=== PATIENT | female | born 1965 | race Caucasian/White ===

== ENCOUNTER 2018-02-20 15:50 | Emergency (ER) | payer BC ==
[2018-02-20] MEDS ORDERED: Sodium Chloride 0.9% 1,000 ML IV ONE ×2 (15:57→17:01)
[2018-02-20] MEDS ORDERED: Labetalol 20 MG/4 ML Syringe IVPUSH ONE (16:01)
--- NOTE | 2018-02-20 16:02 | EDM.PDOC ---
ED HPI GENERAL MEDICAL PROBLEM - General Chief Complaint: Respiratory Problem Stated Complaint: CHEST TIGHTNESS Time Seen by Provider: 02/20/18 15:50 Source of Information: Reports: Patient, Family History Limitations: Reports: Respiratory Distress - History of Present Illness INITIAL COMMENTS - FREE TEXT/NARRATIVE: 52 y.o.w f came to the ed with her SO due to palpitations and light headedness, Her face is tingling and feels it is exploding. Her pulse was 123 her RR was 33 on arrival to the ed. She did not drink much water in the past few days because she did not feel like it. Stormy N/V/D or other acute medical issues. When the nurse took the vitals BP was 182/120 Pulse 119 RR 20 Pulse ox 99% on RA Temp 36.8 Onset Date: 02/19/18 Onset Time: 12:00 Duration: Day(s):, Intermittent Location: Reports: Chest Quality: Reports: Ache, Same as Previous Episode Severity: Moderate Improves with: Reports: Rest Worsens with: Reports: None Context: Reports: Other Associated Symptoms: Reports: Chest Pain, Cough, Shortness of Breath - Related Data Allergies Allergy/AdvReac Type Severity Reaction Status Date / Time morphine Allergy Itching Verified 02/20/18 15:55 Home Meds: Home Meds Lisinopril/Hydrochlorothiazide [Lisinopril-Hctz 20-25 mg Tab] 1 each PO DAILY [History] Meloxicam 7.5 mg PO DAILY 01/18/18 [History] PARoxetine [Paxil] 40 mg PO DAILY 01/18/18 [History] traZODone HCl [Trazodone HCl] 100 mg PO BEDTIME 01/18/18 [History] Levofloxacin 500 mg PO DAILY 02/20/18 [History] diphenhydrAMINE HCl [Benadryl] 25 mg PO DAILY PRN 02/20/18 [History] predniSONE [Prednisone] 20 mg PO DAILY 02/20/18 [History] Past Medical History Cardiovascular History: Reports: Hypertension [employer] History: Reports: Musculoskeletal History: Reports: Arthritis - Past Surgical History HEENT Surgical History: Reports: Tonsillectomy GI Surgical History: Reports: Other (See Below) Other GI Surgeries/Procedures: hemorrhoidectomy Female Surgical History: Reports: Section Musculoskeletal Surgical History: Reports: Hip Replacement Social & Family History - Caffeine Use Caffeine Use: Reports: Coffee ED ROS GENERAL - Review of Systems Review Of Systems: See Below Constitutional: Reports: No Symptoms, Weakness HEENT: Reports: No Symptoms Respiratory: Reports: No Symptoms Cardiovascular: Reports: Lightheadedness, Palpitations Endocrine: Reports: No Symptoms GI/Abdominal: Reports: No Symptoms : Reports: No Symptoms Musculoskeletal: Reports: No Symptoms Skin: Reports: No Symptoms Neurological: Reports: No Symptoms Psychiatric: Reports: No Symptoms Hematologic/Lymphatic: Reports: No Symptoms Immunologic: Reports: No Symptoms ED EXAM, GENERAL - Physical Exam Exam: See Below Exam Limited By: No Limitations General Appearance: Alert, WD/WN, Moderate Distress Eye Exam: Bilateral Eye: Normal Inspection Ears: Normal External Exam Ear Exam: Bilateral Ear: Auricle Normal Nose: Normal Inspection, Normal Mucosa, No Blood Throat/Mouth: Normal Inspection, Normal Lips, Normal Voice, No Airway Compromise Head: Atraumatic, Normocephalic Neck: Normal Inspection, Supple, Non-Tender, Full Range of Motion Respiratory/Chest: No Respiratory Distress, Lungs Clear, Normal Breath Sounds, Chest Non-Tender Cardiovascular: No Edema, No Gallop, No JVD, No Murmur, No Rub, Tachycardia GI/Abdominal: Normal Bowel Sounds, Soft, Non-Tender, No Organomegaly, No Abnormal Bruit, No Mass, Pelvis Stable (Female) Exam: Deferred Rectal (Female) Exam: Deferred Back Exam: Normal Inspection, Full Range of Motion Extremities: Normal Inspection, Normal Range of Motion, Non-Tender, No Pedal Edema, Normal Capillary Refill Neurological: Alert, Oriented, CN II-XII Intact, Normal Cognition, Abnormal Gait (dizziness) Psychiatric: Normal Affect, Normal Mood Skin Exam: Warm, Dry, Intact, Normal Color, No Rash Lymphatic: No Adenopathy EKG INTERPRETATION EKG Date: 02/20/18 Time: 15:50 Rhythm: NSR Rate (Beats/Min): 120 [place]: Normal P-Wave: Present QRS: Normal ST-T: Normal QT: Normal Comparison: NA - No Prior EKG Course - Vital Signs Text/Narrative:: 52 y.o.w f came to the ed with her SO due to palpitations and light headedness, Her face is tingling and feels it is exploding. Her pulse was 123 her RR was 33 on arrival to the ed. She did not drink much water in the past few days because she did not feel like it. Stormy N/V/D or other acute medical issues. When the nurse took the vitals BP was 182/120 Pulse 119 RR 20 Pulse ox 99% on RA Temp 36.8 PE: WNWD WF with palpitations, lightheadedness and C/P with deep inspiration, Pt did not take her BP meds today. Imaging: CDXR: NAD Labs: CBC nl BMP: Na was 128 K was 4.3 GFR > 60 YOVANY/CR nl Impression: Viral syndrome, Dehydration, Low Sodium, HTN Tx: NS 2 liters, Labetolol, Toradol Reexam: repeat Na was 131, pt was ambulating fine, improved 90% on time of D/C Plan: D/C with instructions Last Recorded V/S: Last Vital Signs Temp 37.3 C 02/20/18 15:50 Pulse 70 02/20/18 19:10 Resp 18 02/20/18 16:30 BP 132/74 02/20/18 19:10 Pulse Ox 100 02/20/18 16:30 - Orders/Labs/Meds Orders: Active Orders 24 hr Category Date Time Status Chest 1V Frontal [CR] Stat Exams 02/20/18 15:57 Taken EKG 12 Lead [EK] Routine Ther 02/20/18 15:57 Ordered Labs: Laboratory Tests 02/20/18 02/20/18 02/20/18 Range/Units 16:00 16:00 16:00 WBC 9.3 (4.5-12.0) X10-3/uL RBC 5.04 (3.23-5.20) x10(6)uL Hgb 15.5 (11.5-15.5) g/dL Hct 45.5 (30.0-51.3) % MCV 90.3 (80-96) fL MCH 30.8 (27.7-33.6) pg MCHC 34.1 (32.2-35.4) g/dL RDW 14.0 (11.5-15.5) % Plt Count 466 H (125-369) X10(3)uL MPV 7.3 L (7.4-10.4) fL Neut % (Auto) 74.3 (46-82) % Lymph % (Auto) 17.7 (13-37) % [place] % (Auto) 7.5 (4-12) % Eos % (Auto) 0 L (1.0-5.0) % Baso % (Auto) 0 (0-2) % Neut # (Auto) 7.0 (1.6-8.3) # Lymph # (Auto) 1.6 (0.6-5.0) # [place] # (Auto) 0.7 (0.0-1.3) # Eos # (Auto) 0.0 (0.0-0.8) # Baso # (Auto) 0.0 (0.0-0.2) # Sodium 128 L (135-145) mmol/L Potassium 4.6 (3.5-5.3) mmol/L Chloride 91 L (100-110) mmol/L Carbon Dioxide 23 (21-32) mmol/L BUN 17 (7-18) mg/dL Creatinine 0.9 (0.55-1.02) mg/dL Est Cr Clr Drug Dosing TNP Estimated GFR (MDRD) > 60 (>60) BUN/Creatinine Ratio 18.9 (9-20) Glucose 146 H (80-116) mg/dL Calcium 10.5 H (8.6-10.2) mg/dL Magnesium (1.8-2.5) mg/dL Troponin I < 0.017 L (<0.017-0.056) ng/mL Urine Color (YELLOW) Urine Appearance (CLEAR) Urine pH (5.0-6.5) Ur Specific [place] (1.010-1.025) Urine Protein (NEGATIVE) mg/dL Urine Glucose (UA) (NEGATIVE) mg/dL Urine Ketones (NEGATIVE) mg/dL Urine Occult Blood (NEGATIVE) Urine Nitrite (NEGATIVE) Urine Bilirubin (NEGATIVE) Urine Urobilinogen (NEGATIVE) mg/dL Ur Leukocyte Esterase (NEGATIVE) Urine RBC (0) Urine WBC (0) Ur Squamous Epith Cells (NS,R,O) Urine Bacteria (NS) 02/20/18 02/20/18 Range/Units 16:10 18:10 WBC (4.5-12.0) X10-3/uL RBC (3.23-5.20) x10(6)uL Hgb (11.5-15.5) g/dL Hct (30.0-51.3) % MCV (80-96) fL MCH (27.7-33.6) pg MCHC (32.2-35.4) g/dL RDW (11.5-15.5) % Plt Count (125-369) X10(3)uL MPV (7.4-10.4) fL Neut % (Auto) (46-82) % Lymph % (Auto) (13-37) % [place] % (Auto) (4-12) % Eos % (Auto) (1.0-5.0) % Baso % (Auto) (0-2) % Neut # (Auto) (1.6-8.3) # Lymph # (Auto) (0.6-5.0) # [place] # (Auto) (0.0-1.3) # Eos # (Auto) (0.0-0.8) # Baso # (Auto) (0.0-0.2) # Sodium 131 L (135-145) mmol/L Potassium 4.3 (3.5-5.3) mmol/L Chloride 98 L D (100-110) mmol/L Carbon Dioxide 23 (21-32) mmol/L BUN 16 (7-18) mg/dL Creatinine 0.9 (0.55-1.02) mg/dL Est Cr Clr Drug Dosing TNP Estimated GFR (MDRD) > 60 (>60) BUN/Creatinine Ratio 17.8 (9-20) Glucose 143 H (80-116) mg/dL Calcium 8.8 (8.6-10.2) mg/dL Magnesium 1.8 (1.8-2.5) mg/dL Troponin I (<0.017-0.056) ng/mL Urine Color Yellow (YELLOW) Urine Appearance Slightly cloudy (CLEAR) Urine pH 6.0 (5.0-6.5) Ur Specific [place] 1.010 (1.010-1.025) Urine Protein Negative (NEGATIVE) mg/dL Urine Glucose (UA) Normal (NEGATIVE) mg/dL Urine Ketones Negative (NEGATIVE) mg/dL Urine Occult Blood Negative (NEGATIVE) Urine Nitrite Negative (NEGATIVE) Urine Bilirubin Negative (NEGATIVE) Urine Urobilinogen Normal (NEGATIVE) mg/dL Ur Leukocyte Esterase Negative (NEGATIVE) Urine RBC 0-5 (0) Urine WBC 0-5 (0) Ur Squamous Epith Cells Moderate H (NS,R,O) Urine Bacteria Many H (NS) Meds: Medications Discontinued Medications Generic Name Dose Route Start Last Admin Trade Name Staci PRN Reason Stop Dose Admin Sodium Chloride 1,000 mls @ 999 mls/hr 02/20/18 15:57 02/20/18 15:59 Normal Saline IV 02/20/18 16:57 999 mls/hr .BOLUS ONE Administration Sodium Chloride 1,000 mls @ 999 mls/hr 02/20/18 17:01 02/20/18 17:04 Normal Saline IV 02/20/18 18:01 999 mls/hr .BOLUS ONE Administration Ketorolac Tromethamine 30 mg 02/20/18 17:04 02/20/18 17:13 Toradol IVPUSH 02/20/18 17:05 30 mg ONETIME ONE Administration Labetalol HCl 10 mg 02/20/18 16:01 02/20/18 16:06 Normodyne IVPUSH 02/20/18 16:02 10 mg ONETIME ONE Administration Protocol Departure - Departure Time of Disposition: 18:59 Disposition: Home, Self-Care 01 Condition: Good Clinical Impression: Hyponatremia, Dehydration, Viral syndrome Hypertension Qualifiers: Hypertension type: essential hypertension Qualified Code(s): I10 - Essential ( primary) hypertension - Discharge Information Referrals: Juvenal John PA [Primary Care Provider] - Forms: ED Department Discharge, ED Return to Work/School Form Additional Instructions: Please increase water intake, please cont your blood pressure meds, f/u to repeat your sodium level in 1 week, please come back if your symptoms get worse acutely. - My Orders Last 24 Hours: My Active Orders 02/20/18 15:57 Chest 1V Frontal [CR] Stat EKG 12 Lead [EK] Routine - Assessment/Plan Last 24 Hours: My Active Orders 02/20/18 15:57 Chest 1V Frontal [CR] Stat EKG 12 Lead [EK] Routine
[2018-02-20] MEDS ORDERED: Ketorolac 30 MG/ML SDV IVPUSH ONE (17:04)
== END 2018-02-20 19:15 | disposition home or self-care (01) ==
LOC: FB.ED 15:50
DX: I10 Essential (primary) hypertension (principal); E86.0 Dehydration; B34.9 Viral infection, unspecified; E87.1 Hypo-osmolality and hyponatremia; Z88.5 Allergy status to narcotic agent
CPT/HCPCS: 36415; 71045; 80048; 81001; 83735; 84484; 85025; 93005; 96361; 96374; 96375; 99285; J1885; J3490; J7030